=== PATIENT | male | born 1970 | race Caucasian/White ===

== ENCOUNTER 2017-12-18 09:31 | Emergency (ER) | payer BC ==
[2017-12-18] MEDS: IBUPROFEN 600 MG TAB PO (11:05)
[2017-12-18] MEDS: TRIMETHOPRIM/SULFAMETHOX (DS) TAB PO (11:05)
== END 2017-12-18 12:09 | disposition home or self-care (01) ==
LOC: FTE 09:31
DX: L72.3 Sebaceous cyst (principal)
CPT/HCPCS: 10060; 99283-25

== ENCOUNTER 2017-12-20 17:36 | Emergency (ER) | payer BC | END 2017-12-20 19:22 | disposition home or self-care (01) | LOC: E/R 19:22 | DX: Z48.01 Encounter for change or removal of surgical wound dressing (principal) | CPT/HCPCS: 99281 ==

== ENCOUNTER 2017-12-22 21:45 | Emergency (ER) | payer SELFPAY, BC | END 2017-12-23 00:10 | disposition left against medical advice (07) | LOC: FTE 21:45 | DX: Z53.21 Procedure and treatment not carried out due to patient leaving prior to being seen by health care provider (principal) ==